=== PATIENT | female | born 1985 | race Caucasian/White ===

== ENCOUNTER 2021-04-01 09:04 | Emergency (ER) | payer SELFPAY ==
[~2021-04-01] VITALS: Ht 175.3 cm; Wt 111.6 kg
--- NOTE | 2021-04-01 09:33 | NUR ---
PT C/O VAG BLEEDING, 5 WKS PER PT. AAOX4, VSS, RR EVEN & UNLABORED. DENIES CP, SOB, DIZZINESS, N/V/D, ABD PAIN AT THIS TIME. PT SEEN & EVAL'D BY DR. GEORGE. WILL CONT TO MONITOR.
--- NOTE | 2021-04-01 09:41 | NUR ---
UNABLE TO PROVIDE URINE AT THIS TIME, WILL TRY AGAIN LATER
--- NOTE | 2021-04-01 09:42 | NUR ---
INFORMED PATIENT THAT ULTRASOUND HAS A PROCEDURE AT THE MOMENT AND WILL BE HERE IN AN HOUR
[2021-04-01 10:37] LABS: BASOPHILS % (AUTO) 0.8 % (0.0-2.0); EOSINOPHILS % (AUTO) 1.5 % (0.0-6.0); HEMATOCRIT 38 % (33-45); HEMOGLOBIN 12.4 g/dL (11.5-14.8); LYMPHOCYTES # (AUTO) 1.5 K/uL (0.8-4.8); LYMPHOCYTES % (AUTO) 34.7 % (20.0-44.0); MEAN CORPUSCULAR HGB CONC 33 g/dl (31.0-36.0); MEAN CORPUSCULAR VOLUME 85 fL (82-100); MONOCYTES # (AUTO) 0.3 K/uL (0.1-1.30); MONOCYTES % (AUTO) 7.8 % (2.0-12.0); NEUTROPHILS # (AUTO) 2.4 K/uL (1.8-8.9); NEUTROPHILS % (AUTO) 55.2 % (43.0-81.0); PLATELET COUNT (AUTO) 224 K/uL (150-450); RED BLOOD CELL COUNT(AUTO) 4.48 MIL/uL (4.0-5.2); WHITE BLOOD COUNT (AUTO) 4.3 K/uL (4.3-11.0)
--- NOTE | 2021-04-01 10:40 | NUR ---
URINE COLLECTED AND SENT TO LAB
[2021-04-01 10:46] LABS: CALCIUM, SERUM 8.8 mg/dL (8.5-10.1); CREATININE 0.8 mg/dL (0.6-1.3); POTASSIUM 4.4 mmol/L (3.5-5.1)
[2021-04-01 11:41] LABS: BILIRUBIN,URINE NEGATIVE (NEGATIVE); COLOR,URINE RED (YELLOW); LEUKOCYTE ESTERASE ,URINE NEGATIVE (NEGATIVE); NITRITE, URINE NEGATIVE (NEGATIVE); PH,URINE 6.5 (5.0-8.0); PROTEIN,URINE NEGATIVE (NEGATIVE); UGLUCOSE NEGATIVE (NEGATIVE); UROBILINOGEN,URINE 0.2 EU/dL (0.2)
[2021-04-01 11:50] VITALS: BP 131/75
[2021-04-01 15:55] LABS: BACTERIA,URINE None seen /HPF (None Seen); RBC,URINE TOO NUMEROUS TO COUN /HPF (0-2); WBC,URINE NONE SEEN /HPF (0-3)
[2021-04-01 15:57] LABS: SQUAMOUS EPITHELIAL CELL,UR None Seen /HPF (None Seen)
== END 2021-04-01 12:01 | disposition home or self-care (01) ==
LOC: ER 09:07
DX: O46.91 Antepartum hemorrhage, unspecified, first trimester (principal); Z3A.01 Less than 8 weeks gestation of pregnancy
CPT/HCPCS: 36415; 76856-TC; 80048-TC; 81001; 84702-TC; 85025-TC; 86850-TC